=== PATIENT | male | born 1985 | race Caucasian/White ===

== ENCOUNTER 2020-11-14 13:07 | Observation (INO) ==
[2020-11-14] MEDS ORDERED: Ondansetron 4 MG/2 ML VIAL IVP PRN (14:06)
[2020-11-14] MEDS ORDERED: *HR* Metoprolol 5 MG/5 ML VIAL IVP PRN (14:06)
[2020-11-14] MEDS ORDERED: Naloxone 0.4 MG/ML INJ IVP PRN (14:06)
[2020-11-14] MEDS ORDERED: polyethylene glycoL 3350 17 GM POWD.PACK PO PRN (14:06)
[2020-11-14] MEDS ORDERED: Piperacillin/Tazobactam 3.375 GM in 0.9 % Sodium Chloride Mini Bag 100 ML IVPB SCH (14:07)
[2020-11-14] MEDS ORDERED: Isovue-370 500 ML BOTTLE IVP ONE (14:08)
[2020-11-14] MEDS ORDERED: *HR* OxyCODONE Immed Rel 5 MG TABLET PO PRN ×2 (14:09)
[2020-11-14] MEDS ORDERED: 0.9 % Sodium Chloride 1,000 ML IVC SCH (14:15)
[2020-11-14] MEDS ORDERED: 0.9 % Sodium Chloride 1,000 ML ONE (14:15)
[2020-11-14] MEDS ORDERED: Nicotine 14 MG PATCH.TD24 TD SCH (14:15)
[2020-11-14 14:55] LABS: Basophils % 0.4 %; Eosinophils # 0.2 K/mcL (0.0-0.6); Eosinophils % 3.3 %; Hemoglobin 14.9 g/dL (12.9-16.9); Immature Granulocytes % 0.4 % (0-4); Lymphocytes # 1.4 K/mcL (0.6-4.6); Lymphocytes % 21.2 %; Mean Corpuscular HGB Conc 33.1 g/dL (31.6-35.5); Mean Corpuscular Hemoglobin 29.6 pg (28.0-33.3); Mean Corpuscular Volume 89.5 fL (83.0-100.0); Mean Platelet Volume 11.1 fL (9.4-12.4); Monocytes # 0.5 K/mcL (0.0-1.3); Monocytes % 7.7 %; Neutrophils # 4.5 K/mcL (1.6-8.9); Platelet Count 250 K/mcL (140-400); Red Blood Count 5.03 M/mcL (4.19-5.50); White Blood Count 6.7 K/mcL (4.3-11.1)
[2020-11-14 15:13] LABS: BUN/Creatinine Ratio 11 (6-26); Blood Urea Nitrogen 11 mg/dL (6-20); Calcium 9.6 mg/dL (8.6-10.3); Carbon Dioxide 29 mEq/L (23-29); Chloride 105 mEq/L (98-107); Glucose 83 mg/dL (70-105); Osmolality,Calculated 289 (280-300); Sodium 140 mEq/L (136-145); eGFR For African Americans > 60 (> 60); eGFR For Non-African Americans > 60 (> 60)
[2020-11-14] MEDS ORDERED: Lidocaine 4% CREAM (LMX) 5 GM TP PRN (16:21)
[2020-11-14] MEDS ORDERED: Ketorolac 30 MG/ML VIAL IVP SCH (18:00)
[2020-11-14 19:48] VITALS: BP 152/89
[2020-11-15] MEDS ORDERED: Pantoprazole 40 MG VIAL IVP SCH (09:00)
== END 2020-11-14 21:14 | disposition left against medical advice (07) ==
LOC: 3ANU
PROVIDERS: ADMIT Surgery; ATTEND Surgery